=== PATIENT | male | born 1995 | race African-American/Black ===

== ENCOUNTER 2020-11-23 00:11 | Emergency (ER) | payer OTHER ==
[~2020-11-23] VITALS: Ht 190.5 cm; Wt 143.8 kg
[2020-11-23] MEDS ORDERED: PROAIR HFA8.5 GM INH (00:35)
[2020-11-23] MEDS ORDERED: ALLOPURINOL 10100 M3 PO (00:43)
[2020-11-23] MEDS ORDERED: PREDNISONE50 MG PO (00:43)
[2020-11-23 01:02] VITALS: BP 138/82
== END 2020-11-23 01:02 | disposition home or self-care (01) ==
LOC: M.ERS 00:11
DX: M10.071 Idiopathic gout, right ankle and foot (principal); J45.909 Unspecified asthma, uncomplicated

== ENCOUNTER 2021-03-22 01:26 | Emergency (ER) | payer OTHER ==
[~2021-03-22] VITALS: Ht 190.5 cm; Wt 136.1 kg
[~2021-03-22 01:26] MED LIST: ALLOPURINOL 10100 M3 PO; PREDNISONE50 MG PO; PROAIR HFA8.5 GM INH
[2021-03-22] MEDS ORDERED: PREDNISONE50 MG PO (02:09)
[2021-03-22] MEDS ORDERED: ALLOPURINOL 10100 M3 PO (02:09)
[2021-03-22] MEDS ORDERED: PERCOCET 5-3251 EACH PO (02:34)
[2021-03-22 02:49] VITALS: BP 156/86
== END 2021-03-22 02:50 | disposition home or self-care (01) ==
LOC: M.ERS 01:26
DX: M10.071 Idiopathic gout, right ankle and foot (principal); J45.909 Unspecified asthma, uncomplicated; Z79.899 Other long term (current) drug therapy